=== PATIENT | male | born 1970 | race Caucasian/White ===

== ENCOUNTER → 2023-12-02 | Outpatient (CLI) | payer OTHER ==
--- NOTE | 2023-12-02 14:04 | XR ---
EXAMINATION TYPE: XR foot complete LT DATE OF EXAM: 12/02/2023 1:20 PM CLINICAL INDICATION:Male, 53 years old with history of S91.302A open wound L foot; [facility] COMPARISON: None TECHNIQUE: XR foot complete LT examined in the AP, oblique, and lateral projections. FINDINGS: No evidence of any acute osseous pathology. No evidence of soft tissue swelling. Joints are preserve d. Calcaneal plantar spurring is present. No radiopaque foreign body or evidence for subcutaneous gas . No osseous erosion. IMPRESSION: 1. No evidence of acute fracture. 2. No radiopaque foreign body or evidence for subcutaneous gas. No osseous erosion.
== END | disposition home or self-care (01) ==
LOC: RADXRMAIN 13:08
PROVIDERS: ATTEND Emergency Medicine
DX: S91.302A Unspecified open wound, left foot, initial encounter (principal)

== ENCOUNTER 2023-12-06 14:30 | Emergency (ER) | payer BC ==
[2023-12-06] MEDS: DIPH,PERTUS(ACELL)TETVAC-LF 0.5 ML VIAL IM ONE (14:47)
[2023-12-06] MEDS: LIDOCAINE 1% INJ 10MG/ML (20 ML MDV) SQ ONE (14:47)
--- NOTE | 2023-12-06 14:56 | ED ---
Upper Extremity HPI - General Chief Complaint: Extremity Injury, Upper Stated Complaint: R Hand Injury Time Seen by Provider: 12/06/23 14:55 Source: patient Mode of arrival: ambulatory Limitations: no limitations - History of Present Illness Initial Comments: 53-year-old male presenting to the ER with chief complaint of right fourth digit injury. He states he was launching his boat about 30 minutes prior to arrival and accidentally crushed his right fourth digit in between the boat and the trailer. He denies any other injuries, paresthesias, limited range of motion. He states bleeding is under control at this time. Not currently on any blood thinners. Tetanus status unknown. He does state he is currently on antibiotics as he stepped on a screw last week. No other complaints at this time. - Related Data Home Medications Medication Instructions Recorded Confirmed No Known Home Medications 07/25/16 07/25/16 Allergies Allergy/AdvReac Type Severity Reaction Status Date / Time No Known Allergies Allergy Verified 12/06/23 14:37 Review of Systems ROS Statement: Those systems with pertinent positive or pertinent negative responses have been documented in the HPI. ROS Other: All systems not noted in ROS Statement are negative. Past Medical History Past Medical History: No Reported History History of Any Multi-Drug Resistant Organisms: None Reported Past Surgical History: No Surgical Hx Reported Past Psychological History: No Psychological Hx Reported Smoking Status: Former smoker Past Alcohol Use History: Rare Past Drug Use History: None Reported General Exam Limitations: no limitations General appearance: alert, in no apparent distress Head exam: Present: atraumatic, normocephalic, normal inspection Eye exam: Present: normal appearance, PERRL, EOMI. Absent: scleral icterus, conjunctival injection, periorbital swelling Respiratory exam: Present: normal lung sounds bilaterally. Absent: respiratory distress, wheezes, rales, rhonchi, stridor Cardiovascular Exam: Present: regular rate, normal rhythm, normal heart sounds. Absent: systolic murmur, diastolic murmur, rubs, gallop, clicks Extremities exam: Present: other (5 cm flap laceration to right fourth digit finger pad. Minimal active bleeding. Patient has full active range of motion. Sensation intact. 2+ right radial pulse.) Neurological exam: Present: alert, oriented X3, CN II-XII intact Psychiatric exam: Present: normal affect, normal mood Skin exam: Present: warm, dry, intact, normal color. Absent: rash Course Vital Signs 12/06/23 14:31 Temperature 98.5 F Pulse Rate 74 Respiratory 18 Rate Blood Pressure 135/82 O2 Sat by Pulse 97 Oximetry Procedures - Laceration Laceration #1 Consent Obtained: verbal consent Indication: laceration Site: hand Size (cm): 5 Description: flap Depth: simple, single layer Anesthetic Used: lidocaine 1% Anesthesia Technique: nerve block (Digital block) Amount (mls): 6 Pre-repair: wound explored, irrigated extensively, deep structures intact Type of Sutures: nylon Size of Sutures: 4-0 Number of Sutures: 11 Technique: simple, interrupted Patient Tolerated Procedure: well, no complications Medical Decision Making - Medical Decision Making Was pt. sent in by a medical professional or institution (LYRIC Capellan, LUGGAGE ATTENDANT, urgent care, hospital, or retirement...) When possible be specific @ -No Did you speak to anyone other than the patient for history (EMS, parent, family, police, friend...)? What history was obtained from this source @ -No Did you review nursing and triage notes (agree or disagree)? Why? @ -I reviewed and agree with nursing and triage notes Were old charts reviewed (outside hosp., previous admission, EMS record, old EKG, old radiological studies, urgent care reports/EKG's, retirement records)? Report findings @ -No old charts were reviewed Differential Diagnosis (chest pain, altered mental status, abdominal pain women, abdominal pain men, vaginal bleeding, weakness, fever, dyspnea, syncope, headache, dizziness, GI bleed, back pain, seizure, CVA, palpatations, mental health, musculoskeletal)? @ -Laceration, abrasion, contusion, avulsion, foreign body this list is not meant to be all-inclusive EKG interpreted by me (3pts min.). @ -None X-rays interpreted by me (1pt min.). @ -Finger x-ray interpreted by me negative for acute fracture/dislocation/radiopaque foreign body. CT interpreted by me (1pt min.). @ -None done U/S interpreted by me (1pt. min.). @ -None done What testing was considered but not performed or refused? (CT, X-rays, U/S, labs)? Why? @ -None What meds were considered but not given or refused? Why? @ -None Did you discuss the management of the patient with other professionals (professionals i.e. DrEstephania, PA, LUGGAGE ATTENDANT, lab, RT, psych nurse, high school social studies tutor, tipple supervisor, teacher, senior major gifts officer, counter caser)? Give summary @ -No Was smoking cessation discussed for >3mins.? @ -No Was critical care preformed (if so, how long)? @ -No Were there social determinants of health that impacted care today? How? (Homelessness, low income, unemployed, alcoholism, drug addiction, transportation, low edu. Level, literacy, decrease access to med. care, snf, rehab)? @ -No Was there de-escalation of care discussed even if they declined (Discuss DNR or withdrawal of care, Hospice)? DNR status @ -No What co-morbidities impacted this encounter? (DM, HTN, Smoking, COPD, CAD, Cancer, CVA, ARF, Chemo, Hep., AIDS, mental health diagnosis, sleep apnea, morbid obesity)? @ -None Was patient admitted / discharged? Hospital course, mention meds given and route, prescriptions, significant lab abnormalities, going to OR and other p ertinent info. @ -Discharged. Patient is a 53-year-old male presented to the ER with a chief complaint of right finger injury. History and physical exam completed. Vitals stable. Patient in no signs of acute distress and nontoxic-appearing. Right upper extremity neurovascular intact. 5 cm flap laceration to distal right fourth finger pad. Patient has full active range of motion of digit. X-rays obtained negative for acute process. Tetanus updated. Digital block performed for pain control. Laceration cleaned with iodine and sterile water. 11 simple interrupted sutures used to close laceration. Remain neurovascularly intact with full range of motion post closure. Patient tolerated procedure well. Suture care and return parameters discussed. Patient will be discharged stable condition with follow-up to PCP. I advised removal in 10 to 14 days. Patient verbally expressed understanding and agreement with care plan. Case discussed with ED attending, Dr. iKm. Undiagnosed new problem with uncertain prognosis? @ -No Drug Therapy requiring intensive monitoring for toxicity (Heparin, Nitro, Insulin, Cardizem)? @ -No Were any procedures done? @ -Yes Diagnosis/symptom? @ -Laceration Acute, or Chronic, or Acute on Chronic? @ -Acute Uncomplicated (without systemic symptoms) or Complicated (systemic symptoms)? @ -Uncomplicated Side effects of treatment? @ -No Exacerbation, Progression, or Severe Exacerbation? @ -No Poses a threat to life or bodily function? How? (Chest pain, USA, PA, pneumonia, PE, COPD, DKA, ARF, appy, cholecystitis, CVA, Diverticulitis, Homicidal, Suicidal, threat to staff... and all critical care pts) @ -No - Radiology Data Radiology results: report reviewed, image reviewed Disposition Clinical Impression: Laceration Disposition: HOME SELF-CARE Condition: Stable Instructions (If sedation given, give patient instructions): Care For Your Stitches (DC) Additional Instructions: Have sutures moved in 10 to 14 days. Monitor for signs of infection including increasing redness, purulent drainage or increasing pain. You may take [id number] Tylenol and Motrin for pain control. Return to the ER for any new or worsening concerns. Is patient prescribed a controlled substance at d/c from ED?: No Referrals: Paul Altamirano DO [Primary Care Provider] - 1-2 days Time of Disposition: 15:53
--- NOTE | 2023-12-06 15:19 | XR ---
EXAMINATION TYPE: XR finger RT DATE OF EXAM: 12/06/2023 COMPARISON: NONE HISTORY: Pain fourth digit TECHNIQUE: Three views are submitted. FINDINGS: The osseous structures are intact. The joint spaces are preserved and there is no acute fracture or dislocation. Soft tissue edema and possible laceration along the distal margin fourth digit. IMPRESSION: 1. No definite acute fracture or dislocation if symptoms persist, follow-up study in 7 to 10 days wo uld be suggested
[2023-12-06 15:47] VITALS: RESP 18
[2023-12-06 16:27] VITALS: BP 136/72; PULSE 78; TEMP 98.2
== END 2023-12-06 16:19 | disposition home or self-care (01) ==
LOC: EC 14:30
DX: S61.214A Laceration without foreign body of right ring finger without damage to nail, initial encounter (principal); Z23 Encounter for immunization; Z87.891 Personal history of nicotine dependence; W23.0XXA Caught, crushed, jammed, or pinched between moving objects, initial encounter
CPT/HCPCS: 73140; 90715; 12002; 99283; 90471; J2001